=== PATIENT | male | born 1950 | race Caucasian/White ===

== ENCOUNTER 2016-07-09 08:34 | Observation (INO) | payer OTHER, MEDICAID ==
[~2016-07-09] VITALS: Ht 165.1 cm; Wt 102.2 kg
[~2016-07-09 08:34] MED LIST: ALBU0.0912 INH; DIABETIC MED; OXYC1TAB PO
[2016-07-09] MEDS ORDERED: NACL 0.9% 1,000 ML IV ONE (08:36)
[2016-07-09] MEDS ORDERED: diphenhydrAMINE 50 MG/ML VIAL IVP ONE (08:40)
[2016-07-09] MEDS ORDERED: FAMOTIDINE 20 MG/2 ML VIAL IVP ONE (08:40)
[2016-07-09] MEDS ORDERED: methylPREDNISolone SS 125 MG in WATER STERILE 2 ML IV ONE ×2 (08:40→13:00)
[2016-07-09 08:55] VITALS: BP 182/94
--- NOTE | 2016-07-09 09:03 | NUR ---
Patient to bed 07.
--- NOTE | 2016-07-09 09:05 | NUR ---
PATIENT AWOKE 3AM WITH MILD SWELLING TO RIGHT LOWER CHEEK---ABOUT 6AM RIGHT EYE SWELLING THEN PROGRESSED TO FACE AND LIPS;FULL SPEECH, NO DROOLING NOTED;HX-HTN, DM;RX-METFORMIN, OMEPRAZOLE.DENIES N/V/D; SKIN IS PINK/WARM/DRY; AAOX4 WITH EVEN AND STEADY GAIT; LUNGS CLEAR BL; HR EVEN AND REGULAR; PT DENIES ANY FEVER, CP, SOB, OR COUGH AT THIS TIME; PATIENT STATES PAIN OF 0/10 AT THIS TIME;PATIENT POSITIONED FOR COMFORT; HOB ELEVATED; BEDRAILS UP X2.
--- NOTE | 2016-07-09 09:08 | NUR ---
Dr. Araya evaluating patient at bedside.
[2016-07-09] MEDS ORDERED: IPRATROPIUM 0.02% 0.5 MG/2.5 ML NEBU INH ONE (09:15)
[2016-07-09] MEDS ORDERED: ALBUTEROL 0.083% 2.5 MG/3 ML NEBU INH ONE (09:15)
--- NOTE | 2016-07-09 09:17 | NUR ---
XRAY at bedside.
--- NOTE | 2016-07-09 09:30 | NUR ---
PT RESTING ON BED;NO SOB NOTED;NO ACUTE DISTRESS NOTED;WILL CONTINUE TO MONITOR PT.
[2016-07-09 09:33] LABS: BASOPHILS # (AUTO) 0.1 K/uL (0.00-0.22); BASOPHILS % (AUTO) 0.7 % (0.0-2.0); EOSINOPHILS # (AUTO) 0.3 K/uL (0-0.4); EOSINOPHILS % (AUTO) 3.7 % (0.0-4.0); HEMATOCRIT 44.2 % (36-52); HEMOGLOBIN 14.2 g/dL (12.0-18.0); LYMPHOCYTES # (AUTO) 1.3 K/uL (2.0-11.5); LYMPHOCYTES % (AUTO) 17.7 % (20.5-51.1); MEAN CORPUSCULAR HEMOGLOBIN 25 pg (27-31); MEAN CORPUSCULAR HGB CONC 32 g/dL (33-37); MEAN CORPUSCULAR VOLUME 78 fL (80-94); MONOCYTES # (AUTO) 0.3 K/uL (0.8-1.0); MONOCYTES % (AUTO) 4.2 % (1.7-9.3); NEUTROPHILS # (AUTO) 5.5 K/uL (1.8-7.7); NEUTROPHILS % (AUTO) 73.7 % (42.2-75.2); PLATELET COUNT (AUTO) 164 K/uL (140-450); RED BLOOD CELL COUNT(AUTO) 5.68 MIL/uL (4.20-6.10); RED CELL DISTRIBUTION WIDTH 18.3 % (11.6-13.7); WHITE BLOOD COUNT (AUTO) 7.5 K/uL (4.8-10.8)
[2016-07-09 09:46] LABS: ALBUMIN 3.7 g/dL (3.4-5.0); ANION GAP 14.4 (8-16); CALCIUM 8.9 mg/dL (8.5-10.1); CARBON DIOXIDE 25.8 mmol/L (21-32); CREATININE 0.9 mg/dL (0.6-1.3); POTASSIUM 3.2 mmol/L (3.5-5.1); TOTAL BILIRUBIN 0.8 mg/dL (0.0-1.0)
[2016-07-09] MEDS ORDERED: METF500T PO (09:52)
[2016-07-09] MEDS ORDERED: IBUP-2213 PO (10:04)
[2016-07-09] MEDS ORDERED: LISI10TA11 PO (10:04)
[2016-07-09] MEDS ORDERED: OMEP40EC14 PO (10:04)
[2016-07-09] MEDS ORDERED: MONT10TA35 PO (10:04)
[2016-07-09 10:20] LABS: INR 1.1 (0.8-1.2); PARTIAL THROMBOPLASTIN TIME 27.5 secs (22-35.6); PROTHROMBIN TIME 10.8 secs (10.8-13.4)
[2016-07-09] MEDS ORDERED: ALBUTEROL 0.083% 2.5 MG/3 ML NEBU INH PRN (10:40)
[2016-07-09] MEDS ORDERED: ONDANSETRON 4 MG/2 ML VIAL IVP PRN (10:40)
[2016-07-09] MEDS ORDERED: MORPHINE SULFATE 2 MG/ML SYR IVP PRN (10:40)
[2016-07-09] MEDS ORDERED: ACETAMINOPHEN 325 MG TAB PO PRN (10:40)
[2016-07-09] MEDS ORDERED: LORazepam 2 MG/ML VIAL IVP PRN (10:40)
[2016-07-09] MEDS ORDERED: HYDROcodone/APAP 5/325 MG 1 TAB TAB PO PRN (10:40)
[2016-07-09] MEDS ORDERED: DEXTROSE 50% 50 ML SYR IVP PRN (10:40)
[2016-07-09] MEDS ORDERED: oxyCODONE/APAP 5/325 MG 1 TAB TAB PO PRN (10:45)
--- NOTE | 2016-07-09 10:54 | NUR ---
Patient will be admitted to care of DR RAMIREZ. Admited to TELE. Will go to room 106 B. Belongings list completed. Report to LUKAS CAST.
[2016-07-09 11:30] VITALS: BP 163/80
--- NOTE | 2016-07-09 11:30 | NUR ---
RECEIVED PATIENT FROM ER. PATIENT AWAKE, ALERT, AWAKE AND ORIENTED. NO S/S OF DISTRESS NOTED. NO C/O PAIN AT THIS TIME. PATIENT IS AMBULATORY. FACIAL EDEMA NOTED. PATIENT UNABLE TO SEE AT THE MOMENT DUE TO HIS FACIAL EDEMA. FALL RISK PRECAUTIONS IN PLACE. SKIN IS INTACT. PATIENT PLACED ON 2L 02. VSS WITHIN NORMAL LIMITS. PATIENT ON TELE MONITORING. BED LOWERED WITH CALL LIGHT WITHIN REACH. WILL CONTINUE TO MONITOR
[2016-07-09] MEDS: BLOOD GLUCOSE MONITORING 1 DEV DEV FS SCH ×3 (11:50→21:12)
[2016-07-09] MEDS: INSULIN LISPRO SLIDING SCALE 100 UNITS/ML VIAL SUBQ PRN ×3 (11:57→21:23)
[2016-07-09] MEDS: methylPREDNISolone SS 125 MG/2 ML VIAL IVP SCH ×2 (12:03→21:04)
--- NOTE | 2016-07-09 14:30 | NUR ---
PATIENT CALMLY RESTING IN BED. NO S/S OF DISTRESS NOTED. FAMILY MEMBERS PRESENT AT BEDSIDE
[2016-07-09 16:00] VITALS: BP 166/83
[2016-07-09] MEDS ORDERED: POTASSIUM CHLORIDE 10 MEQ TABER PO SCH (16:50)
--- NOTE | 2016-07-09 19:12 | NUR ---
PATIENT REPORT GIVEN AT BEDSIDE. PATIENT ENDORSED IN STABLE CONDITION
--- NOTE | 2016-07-09 19:13 | NUR ---
RECEIVED REPORT FROM DAY RN FOR CONTINUITY OF CARE. PATIENT IS A&OX4, DISCUSSED PLAN OF CARE WITH PATIENT AND FAMILY MEMBERS AT BEDSIDE, VERBALIZED UNDERSTANDING. SHIFT ASSESSMENT DONE, VS TAKEN, STABLE AT THIS TIME. NO S/S OF RESPIRATORY DISTRESS NOTED ON ROOM AIR. PATIENT DENIES PAIN AT THIS TIME. FACIAL EDEMA NOTED. IV TO LT FA PATENT AND INFUSING FLUIDS WELL. SAFETY PRECAUTIONS ENFORCED, CALL LIGHT PLACED WITHIN REACH. WILL CONTINUE TO MONITOR.
[2016-07-09 20:00] VITALS: BP 164/87
[2016-07-09] MEDS ORDERED: MONTELUKAST SODIUM 10 MG TAB PO SCH (21:00)
[2016-07-09] MEDS: FAMOTIDINE 20 MG/2 ML VIAL IV SCH (21:04)
[2016-07-09] MEDS: metFORMIN 500 MG TAB PO SCH (21:04)
--- NOTE | 2016-07-09 21:04 | NUR ---
DUE MEDICATIONS ADMINISTERED, TOLERATED WELL AND VERBALIZED UNDERSTANDING OF USE. SAFETY MEASURES ENFORCED. CALL LIGHT WITHIN REACH. WILL CONTINUE TO MONITOR.
--- NOTE | 2016-07-09 22:00 | NUR ---
PATIENT SLEEPING AT THIS TIME. NO S/S OF RESPIRATORY DISTRESS OR DISCOMFORT NOTED. CALL LIGHT WITHIN REACH. WILL CONTINUE TO MONITOR.
[2016-07-10] VITALS: BP 154/86
--- NOTE | 2016-07-10 00:34 | NUR ---
VS TAKEN, STABLE. PATIENT NOW SLEEPING, NO S/S OF DISTRESS OR DISCOMFORT NOTED. WILL CONTINUE TO MONITOR.
--- NOTE | 2016-07-10 01:44 | NUR ---
PT SLEEPING AT THIS TIME, NO S/S OF DISTRESS OR DISCOMFORT NOTED. WILL CONTINUE TO MONITOR.
--- NOTE | 2016-07-10 03:50 | NUR ---
VS TAKEN, SAFETY MEASURES ENFORCED. EMPTIED URINAL 800 ML CLEAR YELLOW URINE NOTED. CALL LIGHT WITHIN REACH. WILL CONTINUE TO MONITOR.
[2016-07-10 04:00] VITALS: BP 160/86
[2016-07-10] MEDS: methylPREDNISolone SS 125 MG/2 ML VIAL IVP SCH (05:37)
--- NOTE | 2016-07-10 05:40 | NUR ---
DUE MEDICATIONS ADMINISTERED, TOLERATED WELL. PATIENT AMBULATED IN HALLWAY, NO S/S OF DISTRESS OR DISCOMFORT NOTED. WILL CONTINUE TO MONITOR.
[2016-07-10] MEDS: BLOOD GLUCOSE MONITORING 1 DEV DEV FS SCH (05:44)
[2016-07-10] MEDS ORDERED: NON-FORMULARY ITEM (Omeprazole 40 MG) PO SCH (06:00)
[2016-07-10] MEDS ORDERED: PANTOPRAZOLE 40 MG TABEC PO SCH (06:30)
[2016-07-10] MEDS: INSULIN LISPRO SLIDING SCALE 100 UNITS/ML VIAL SUBQ PRN (06:31)
[2016-07-10 06:56] LABS: BASOPHILS # (AUTO) 0.1 K/uL (0.00-0.22); BASOPHILS % (AUTO) 0.6 % (0.0-2.0); EOSINOPHILS # (AUTO) 0.1 K/uL (0-0.4); HEMATOCRIT 44.3 % (36-52); HEMOGLOBIN 14.2 g/dL (12.0-18.0); LYMPHOCYTES # (AUTO) 0.8 K/uL (2.0-11.5); LYMPHOCYTES % (AUTO) 7.5 % (20.5-51.1); MEAN CORPUSCULAR HEMOGLOBIN 25 pg (27-31); MEAN CORPUSCULAR HGB CONC 32 g/dL (33-37); MEAN CORPUSCULAR VOLUME 79 fL (80-94); MONOCYTES # (AUTO) 0.2 K/uL (0.8-1.0); MONOCYTES % (AUTO) 1.6 % (1.7-9.3); NEUTROPHILS # (AUTO) 9.9 K/uL (1.8-7.7); NEUTROPHILS % (AUTO) 89.3 % (42.2-75.2); PLATELET COUNT (AUTO) 176 K/uL (140-450); RED BLOOD CELL COUNT(AUTO) 5.61 MIL/uL (4.20-6.10); RED CELL DISTRIBUTION WIDTH 18.2 % (11.6-13.7)
[2016-07-10 07:10] LABS: ANION GAP 16.1 (8-16); CALCIUM 8.6 mg/dL (8.5-10.1); CARBON DIOXIDE 24.9 mmol/L (21-32)
--- NOTE | 2016-07-10 07:20 | NUR ---
ENDORSED PATIENT TO DAY RN FOR CONTINUITY OF CARE, IN STABLE CONDITION. AT THIS TIME.
--- NOTE | 2016-07-10 07:25 | NUR ---
REPORT RECEIVED FROM GLUE SPRAYER, PT AWAKE ALERT, STANDING BY THE BEDSIDE, RESP EVEN UNLABORED ON ROOM AIR, SPEAKS CLEARLY IN NAD, DENIES SOB OR DIFF BREATHING, DENIES DIFFICULTY SWALLOWING, NO DROOLING OR STRIDOR NOTED, + FACIAL SWELLING NOTED, PLAN OF CARE DISCUSSED, PT DENIES PAIN OR DISCOMFORT, AMBULATES TO BATHROOM WITH STEADY GAIT WITHOUT ASSIST, CALL FALCON WITHIN REACH, SIDE RAILS UP, BED LOCKED IN LOW POSITION, WILL CONTINUE TO MONITOR.
[2016-07-10 07:29] LABS: WHITE BLOOD COUNT (AUTO) 11.1 K/uL (4.8-10.8)
[2016-07-10 08:00] VITALS: BP 158/90
[2016-07-10] MEDS ORDERED: METH4TAB1 PO (08:11)
[2016-07-10] MEDS ORDERED: MECLIZINE 25 MG TAB PO PRN (08:20)
[2016-07-10] MEDS ORDERED: IBUPROFEN 800 MG TAB PO PRN (08:20)
[2016-07-10] MEDS: metFORMIN 500 MG TAB PO SCH (08:27)
[2016-07-10] MEDS: FAMOTIDINE 20 MG/2 ML VIAL IV SCH (08:27)
[2016-07-10] MEDS ORDERED: metFORMIN 500 MG TAB PO SCH ×2 (08:37→17:00)
[2016-07-10] MEDS ORDERED: ENOXAPARIN 40 MG/0.4 ML SYR SUBQ SCH (09:00)
[2016-07-10 09:19] VITALS: BP 158/90
--- NOTE | 2016-07-10 09:45 | NUR ---
DISCHARGE INSTRUCTION AND RX GIVEN AND EXPLAINED TO PT AND DAUGHTER, THEY EXPRESSED FULL UNDERSTANDING, PT UP AMBULATING WITH STEADY GAIT, ANXIOUS TO GO HOME, SMILING HAPPY JOKING AROUND WITH FAMILY, DENIES PAIN OR DISCOMFORT, DENIES SOB OR DIFF BREATHING OR SWALLOWING, STILL SOME FACIAL SWELLING BUT MUCH BETTER. IV ALREADY REMOVED BY PT?, NO BLEEDING NOTED, SITE CLEAR. PT REFUSES WHEEL CHAIR, DC HOME NOW AMBULATORY WITH FAMILY.
== END 2016-07-10 09:45 | disposition home or self-care (01) ==
LOC: MED 08:34 → MTU 10:36
PROVIDERS: ADMIT Hospitalist; ATTEND Hospitalist
DX: T78.3XXA Angioneurotic edema, initial encounter (principal); E87.6 Hypokalemia; R94.5 Abnormal results of liver function studies; F10.10 Alcohol abuse, uncomplicated; I10 Essential (primary) hypertension; J44.9 Chronic obstructive pulmonary disease, unspecified; E11.9 Type 2 diabetes mellitus without complications
CPT/HCPCS: 36415; 71010; 80048; 80053; 82553; 82948; 83880; 84484; 85025; 85610; 85730; 87081; 93005; 94640; 94760; 96361; 96372; 96374; 96375; 96376; 99285; G0378; J1200; J1650; J1815; J2930; J3490; J7030; J7613; J7644; Q0092

== ENCOUNTER 2016-12-05 00:03 | Emergency (ER) | payer MEDICARE ==
[~2016-12-05] VITALS: Ht 177.8 cm; Wt 90.3 kg
[~2016-12-05 00:03] MED LIST changes: +IBUP-2213 PO; +METF500T PO; +METH4TAB1 PO; +MONT10TA35 PO; +OMEP40EC14 PO
--- NOTE | 2016-12-05 00:03 | NUR ---
TO ER BED 11
--- NOTE | 2016-12-05 00:04 | NUR ---
Patient being evaluated by physician at bedside.
--- NOTE | 2016-12-05 00:10 | NUR ---
BENEDRYL 25 MG IVP, SOLU-MEDROL 125 MG IVP, PEPSID 20 MG IVP PER MD ORDER.
[2016-12-05] MEDS ORDERED: diphenhydrAMINE 50 MG/ML VIAL ONE (00:19)
[2016-12-05] MEDS ORDERED: FAMOTIDINE 20 MG/2 ML VIAL ONE (00:19)
[2016-12-05] MEDS ORDERED: methylPREDNISolone SS 125 MG/2 ML VIAL ONE (00:19)
[2016-12-05 00:20] VITALS: BP 179/106
[2016-12-05] MEDS ORDERED: NACL 0.9% 1,000 ML IV ONE ×2 (00:21→01:20)
--- NOTE | 2016-12-05 00:23 | NUR ---
66Y M BIB S/P INGESTION OF PORK TACO NOW allergic reaction, tongue swelling. VSS. SA02 99% ON ROOM AIR. BREATHING IS UNLABORED. ER MD DR MARTINEZ AT BEDSIDE. HX DM, HTN
[2016-12-05] MEDS ORDERED: FAMOTIDINE 20 MG/2 ML VIAL IVP ONE (00:25)
[2016-12-05] MEDS ORDERED: diphenhydrAMINE 50 MG/ML VIAL IVP ONE (00:25)
[2016-12-05] MEDS ORDERED: methylPREDNISolone SS 125 MG in WATER STERILE 2 ML IV ONE (00:25)
[2016-12-05 00:56] LABS: ANION GAP 13.7 (8-16); CARBON DIOXIDE 26.8 mmol/L (21-32); CREATININE 1.2 mg/dL (0.7-1.3); POTASSIUM 3.5 mmol/L (3.5-5.1)
[2016-12-05 01:03] LABS: HEMATOCRIT 44.2 % (36-52); MEAN CORPUSCULAR HEMOGLOBIN 24 pg (27-31); MEAN CORPUSCULAR HGB CONC 32 g/dL (33-37); MEAN CORPUSCULAR VOLUME 75 fL (80-94); PLATELET COUNT (AUTO) 299 K/uL (140-450); PROTHROMBIN TIME 11.6 secs (10.8-13.4); RED BLOOD CELL COUNT(AUTO) 5.89 MIL/uL (4.20-6.10); RED CELL DISTRIBUTION WIDTH 15.5 % (11.6-13.7); WHITE BLOOD COUNT (AUTO) 18.2 K/uL (4.8-10.8)
[2016-12-05 01:09] LABS: EOSINOPHILS % (MANUAL) 4 % (0-4); LYMPHOCYTES % (MANUAL) 29 % (20-46); MONOCYTES % (MANUAL) 6 % (5-12)
[2016-12-05] MEDS ORDERED: diphenhydrAMINE 50 MG/ML VIAL IVP PRN (01:25)
[2016-12-05] MEDS ORDERED: ACETAMINOPHEN 325 MG TAB PO PRN (01:25)
[2016-12-05] MEDS ORDERED: ALBUTEROL HFA MDI 90 MCG/ACTUATION 8 GM INH PRN (01:25)
[2016-12-05] MEDS ORDERED: ONDANSETRON 4 MG/2 ML VIAL IVP PRN (01:25)
[2016-12-05] MEDS ORDERED: ALBUTEROL 0.083% 2.5 MG/3 ML NEBU INH PRN (01:25)
[2016-12-05] MEDS ORDERED: LORazepam 2 MG/ML VIAL IVP PRN (01:25)
[2016-12-05] MEDS ORDERED: DEXTROSE 50% 50 ML SYR IVP PRN (01:25)
[2016-12-05] MEDS ORDERED: oxyCODONE/APAP 5/325 MG 1 TAB TAB PO PRN (01:25)
--- NOTE | 2016-12-05 01:55 | NUR ---
Patient will be admitted to care of DR ARNOLD. Admited to TELE 119A. Will go to room 119A. Belongings list completed. Report to WILLEM GAYTAN .
[2016-12-05 02:05] VITALS: BP 139/70
--- NOTE | 2016-12-05 02:05 | NUR ---
PATIENT ADMITTED TO THE UNIT FOR OBSERVATION. PATIENT IS AWAKE ALERT AND ORIENTED. AMBULATORY. IS PRESENT AT BEDSIDE. PATIENT'S TONGUE IS SWOLLEN, BUT HE HAS NO DIFFICULTY OF BREATHING, HOWEVER HE IS NOT ABLE TO SPEAK. NO SIGNS AND SYMPTOMS OF DISTRESS NOTED. [employer] TELEPHONE USED TO SPEAK WITH PATIENT'S . 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 BED IN LOWEST POSITION, SIDE RAILS UP AND CALL LIGHT WITHIN REACH.
[2016-12-05 04:00] VITALS: BP 136/83
--- NOTE | 2016-12-05 04:41 | NUR ---
1ST UNIT OF [facility]FP W BB#OF [id number] STARTED ON 12/06/16 AT 0315 AND FINISHED AT 0400.PT TOLERATED WELL.VS STABLE DURING TRANSFUSION.
--- NOTE | 2016-12-05 05:24 | NUR ---
2ND UNIT OF [facility]FP STARTED ON 12/05/16 AT 0440 AND FINISHED AT 0515.PT TOLERATED WELL.VS STABLE DURING TRANSFUSION.
[2016-12-05] MEDS ORDERED: methylPREDNISolone SS 125 MG/2 ML VIAL IVP SCH ×2 (06:00→21:00)
[2016-12-05] MEDS ORDERED: PANTOPRAZOLE 40 MG TABEC PO SCH (06:00)
--- NOTE | 2016-12-05 06:32 | NUR ---
CHECKED PATIENT'S BLOOD SUGAR, BLOOD SUGAR IS 469. DR. RAMIREZ NOTIFIED. DR. RAMIREZ ORDERED 16 UNITS OF HUMALOG TO BE GIVEN.
[2016-12-05] MEDS: BLOOD GLUCOSE MONITORING 1 DEV DEV FS SCH ×3 (06:34→16:27)
[2016-12-05] MEDS: INSULIN LISPRO SLIDING SCALE 100 UNITS/ML VIAL SUBQ PRN ×7 (06:37→16:56)
--- NOTE | 2016-12-05 07:20 | NUR ---
PT REPORT RECEIVED AT THE BEDSIDE. IV ACCESS NOTED ON THE LEFT AC, SALINE LOCK, FLUSHED WITH NS. NO S/S OF INFILTRATION OR SWELLING NOTED AT IV SITE. PT SHOWED NO S/S OF ACUTE DISTRESS. BED LOW, SEMI-MADRIGAL, CALL LIGHT WITHIN REACH.
--- NOTE | 2016-12-05 07:29 | NUR ---
PATIENTS REPORT GIVEN TO MORNING NURSE. PATIENT IS IN STABLE CONDITION
[2016-12-05 08:00] VITALS: BP 145/81
[2016-12-05] MEDS: IBUPROFEN 600 MG TAB PO SCH ×3 (08:27→17:00)
[2016-12-05] MEDS ORDERED: ENOXAPARIN 40 MG/0.4 ML SYR SUBQ SCH (09:00)
[2016-12-05] MEDS ORDERED: metFORMIN 500 MG TAB PO SCH (09:00)
[2016-12-05] MEDS ORDERED: FAMOTIDINE 20 MG/2 ML VIAL IVP SCH (09:00)
[2016-12-05] MEDS ORDERED: PRED10TA6 PO (09:29)
[2016-12-05] MEDS ORDERED: FAMO-90 PO (09:29)
[2016-12-05] MEDS ORDERED: DIPH25TA53 PO (09:29)
[2016-12-05] MEDS ORDERED: MONT10TA35 PO (09:29)
[2016-12-05] MEDS ORDERED: INSULIN DETEMIR 100 UNITS/ML 10 ML VIAL SUBQ SCH (09:30)
--- NOTE | 2016-12-05 09:52 | NUR ---
PATIENT HAS BEEN SCREENED AND CATEGORIZED MODERATE NUTRITION RISK. PATIENT WILL BE SEEN WITHIN 3-5 DAYS OF ADMISSION. 12/07/16-12/09/[address]
--- NOTE | 2016-12-05 10:15 | NUR ---
BLOOD GLUCOSE >600. SCHEDULED LEVEMIR ADMINISTERED. NOTIFIED DR. ARNOLD. ORDERED 20 UNITS OF HUMALOG. WILL CONTINUE TO MONITOR.
--- NOTE | 2016-12-05 11:32 | NUR ---
BLOOD GLUCOSE RECHECK, READING WAS 554. PAGED DR. ARNOLD. WAITING FOR CALL BACK. PT SHOWED NO S/S OF ACUTE DISTRESS.
--- NOTE | 2016-12-05 11:40 | NUR ---
DR. ARNOLD CALLED BACK. ORDERED 20 UNITS OF HUMALOG. PT LATEST GLUCOSE CHECK WAS 554.
[2016-12-05 12:05] VITALS: BP 130/76
--- NOTE | 2016-12-05 13:02 | NUR ---
PT GLUCOSE LEVEL WAS 437, NOTIFIED DR. ARNOLD. ORDERED 20 UNITS OF HUMALOG SUBQ.
--- NOTE | 2016-12-05 17:00 | NUR ---
NOTIFIED DR ARNOLD ABOUT PATIENT'S BLOOD SUGAR OF 317. ORDERS TO ADMINISTER 15 UNITS OF HUMALOG. ALSO TO PUT ADDITIONAL PRESCRIPTION FOR DIABETES. PATIENT'S PREFERRED PHARMACY INFO GIVEN TO THE DOCTOR
[2016-12-05 17:06] VITALS: BP 155/73
--- NOTE | 2016-12-05 17:43 | NUR ---
PT DISCHARGE INSTRUCTIONS AND MEDICATION TEACHING GIVEN. PT VERBALIZED UNDERSTANDING. IV DC'ed, TIP INTACT. PT TOLERATED WELL. PT SHOWED NO S/S OF ACUTE DISTRESS. WRIST BANDS REMOVED. PT WAS ABLE TO AMBULATE, DISCHARGED WITH FAMILY MEMBERS. PT LEFT IN STABLE CONDITION AND WITH ALL HIS BELONGINGS AND DISCHARGE PAPERS.
[2016-12-05] MEDS ORDERED: MONTELUKAST SODIUM 10 MG TAB PO SCH (21:00)
[2016-12-06] MEDS ORDERED: ASPIRIN 81 MG TAB.CHEW PO SCH (09:00)
== END 2016-12-05 17:45 | disposition home or self-care (01) ==
LOC: MED 00:03 → MTU 01:32
PROVIDERS: ADMIT Hospitalist; ATTEND Hospitalist
DX: T78.3XXA Angioneurotic edema, initial encounter (principal); I10 Essential (primary) hypertension; J45.909 Unspecified asthma, uncomplicated; K21.9 Gastro-esophageal reflux disease without esophagitis; E11.9 Type 2 diabetes mellitus without complications; E66.9 Obesity, unspecified
CPT/HCPCS: 36415; 80048; 82948; 85025; 85610; 85730; 86886; 86900; 86901; 87081; 94760; 96372; 96374; 96375; 96376; 99291; G0378; J0171; J1200; J1650; J1815; J2930; J3490; J7030; P9017; 96361

== ENCOUNTER 2020-01-26 11:26 | Emergency (ER) | payer MEDICARE, OTHER ==
[~2020-01-26] VITALS: Ht 165.1 cm; Wt 95.3 kg
[2020-01-26 11:26] VITALS: BP 142/76
[~2020-01-26 11:26] MED LIST changes: +DIPH25TA53 PO; +FAMO-90 PO; -METH4TAB1 PO; +PRED10TA6 PO
--- NOTE | 2020-01-26 11:30 | NUR ---
PT BIB DAUGHTER C/O LAC ON THE LEFT SIDED OF THE HEAD. 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 DENIES DIZZINESS, BLURRY VISION, OR PAIN AT THIS TIME. PT'S DAUGHTER STATES LAST TDAP SHOT WAS LONG TIME AGO. PMH: ASTHMA, DM, HTN
[2020-01-26] MEDS ORDERED: LIDOCAINE/EPI 1% 1:100000 20 ML VIAL INJ ONE (11:55)
[2020-01-26] MEDS ORDERED: HYDROcodone/APAP 5/325 MG 1 TAB TAB PO ONE (12:20)
--- NOTE | 2020-01-26 12:20 | NUR ---
Patient taken to CT scan via wheelchair by tech.
[2020-01-26] MEDS ORDERED: BACITRACIN OINT 500 UNITS/GM PKT TP ONE (13:00)
[2020-01-26 13:16] VITALS: BP 133/71
--- NOTE | 2020-01-26 13:17 | NUR ---
Patient discharged with v/s stable. Written and verbal after care instructions given and explained. Patient alert, oriented and verbalized understanding of instructions. Ambulatory with steady gait. All questions addressed prior to discharge. ID band removed. Patient advised to follow up with PMD. Rx of Naproxen 550mg given. Patient educated on indication of medication including possible reaction and side effects. Opportunity to ask questions provided and answered.
== END 2020-01-26 13:17 | disposition home or self-care (01) ==
LOC: MED 11:26
DX: S01.01XA Laceration without foreign body of scalp, initial encounter (principal); J45.909 Unspecified asthma, uncomplicated; E11.9 Type 2 diabetes mellitus without complications; I10 Essential (primary) hypertension; Z79.84 Long term (current) use of oral hypoglycemic drugs; Z79.899 Other long term (current) drug therapy; W22.8XXA Striking against or struck by other objects, initial encounter; Y93.89 Activity, other specified; Y92.89 Other specified places as the place of occurrence of the external cause; Y99.8 Other external cause status
CPT/HCPCS: 12002; 70450; 90471; 90715; 99284; J2001